=== PATIENT | male | born 1950 | race Two or more races ===

== ENCOUNTER 2019-04-12 11:14 | Outpatient (CLI) | payer MEDICAID, MEDICARE | END 2019-04-12 23:59 | disposition home or self-care (01) | LOC: US 11:14 | PROVIDERS: ATTEND Internal Medicine Interventional Cardiology | DX: Z13.6 Encounter for screening for cardiovascular disorders (principal); I65.22 Occlusion and stenosis of left carotid artery; I73.9 Peripheral vascular disease, unspecified; I71.4 Abdominal aortic aneurysm, without rupture; M79.89 Other specified soft tissue disorders | CPT/HCPCS: 76770-TC; 93880-TC ==